=== PATIENT | female | born 1955 | race Caucasian/White ===

== ENCOUNTER 2022-04-26 10:01 | Outpatient (CLI) | payer BC | END 2022-04-26 10:02 | disposition home or self-care (01) | LOC: BICRAD 10:01 | PROVIDERS: ATTEND Family Medicine | DX: J40 Bronchitis, not specified as acute or chronic (principal) | CPT/HCPCS: 71046 ==

== ENCOUNTER 2024-04-04 15:04 | Outpatient (CLI) | payer BC | END 2024-04-04 15:05 | disposition home or self-care (01) | LOC: BICMAMMO 15:04 | PROVIDERS: ATTEND Family Medicine | DX: Z12.31 Encounter for screening mammogram for malignant neoplasm of breast (principal); Z80.3 Family history of malignant neoplasm of breast | CPT/HCPCS: 77063; 77067 ==